=== PATIENT | female | born 1955 | race African-American/Black ===

== ENCOUNTER 2021-02-09 17:45 | Emergency (ER) | payer MEDICARE, MEDICAID ==
[~2021-02-09] VITALS: Ht 162.6 cm; Wt 55.0 kg
[2021-02-09] MEDS ORDERED: ONDANSETRON HCL 4MG/2ML INJ IV STA (20:12)
[2021-02-09] MEDS ORDERED: MORPHINE SULFATE 4 MG/ML CPJ (NOT FOR IM USE) IV STA (20:12)
[2021-02-09] MEDS ORDERED: SODIUM CHLORIDE 0.9% 1,000 ML IV ONE (20:15)
[2021-02-09 21:19] LABS: BASOPHILS % 0.6 % (0.0-2.0); EOSINOPHILS % 1.3 % (0.0-5.0); HEMATOCRIT. 34.6 % (36.0-48.0); HEMOGLOBIN. 11.1 g/dL (12.0-16.0); LYMPHOCYTES % 23.3 % (20.0-50.0); MEAN CORPUSCULAR HEMOGLOBIN 28.4 pg (28.0-32.0); MEAN CORPUSCULAR VOLUME 88.8 fL (81.0-99.0); MEAN PLATELET VOLUME 7.4 fl (7.4-10.4); MONOCYTES % 12.3 % (2.0-8.0); NEUTROPHILS % 62.5 % (40.0-76.0); PLATELET 329 x1000/uL (130-400); RED CELL DISTRIBUTION WIDTH 14.9 % (11.6-14.6)
[2021-02-09 21:27] LABS: CHLORIDE 108 mEq/L (98-107)
[2021-02-09 21:33] LABS: PARTIAL THROMBOPLASTIN TIME 27.3 sec (23.4-31.0)
[2021-02-09 23:01] LABS: CLARITY URINE CLOUDY (CLEAR); COLOR URINE DARK YELLOW (YELLOW); KETONES URINE TRACE (NEGATIVE); LEUKOCYTE ESTERASE URINE 3+ (NEGATIVE); NITRITE URINE NEGATIVE (NEGATIVE); OCCULT BLOOD URINE NEGATIVE (NEGATIVE); PROTEIN URINE 1+ (NEGATIVE); SPECIFIC GRAVITY URINE 1.019 (1.005-1.030)
[2021-02-10] MEDS ORDERED: NITROGLYCERIN 0.4MG TABLET SL SL PRN (01:15)
[2021-02-10] MEDS ORDERED: ASPIRIN 81MG TABLET PO ONE (01:15)
[2021-02-10] MEDS ORDERED: CEFTRIAXONE 1 G PREMIX 50 ML IV ONE (01:15)
[2021-02-10 01:27] VITALS: BP 95/59
== END 2021-02-10 01:48 | disposition short-term general hospital (02) ==
LOC: ER 17:45
DX: R07.89 Other chest pain (principal); R10.9 Unspecified abdominal pain; R91.8 Other nonspecific abnormal finding of lung field; I10 Essential (primary) hypertension; Z20.822 Contact with and (suspected) exposure to COVID-19
CPT/HCPCS: 36415; 71045; 74176; 80053; 81003; 83690; 83880; 84484; 85025; 85610; 85730; 87086; 87426; 93005; 96374; 96375; 99285; J2270; J2405; J7030